=== PATIENT | female | born 1970 | race Caucasian/White ===

== ENCOUNTER → 2019-02-08 | Day surgery (SDC) | payer BC | END | disposition home or self-care (01) | LOC: MSO 07:06 | DX: Z12.11 Encounter for screening for malignant neoplasm of colon (principal); K63.5 Polyp of colon; I10 Essential (primary) hypertension; K21.9 Gastro-esophageal reflux disease without esophagitis; K76.0 Fatty (change of) liver, not elsewhere classified; E78.00 Pure hypercholesterolemia, unspecified; Z98.51 Tubal ligation status | CPT/HCPCS: 00811; J2704; J7120 ==